=== PATIENT | male | born 1955 | race Two or more races ===

== ENCOUNTER 2024-04-10 09:59 | Outpatient (AMB) | payer MEDICARE, SELFPAY ==
[2024-04-10 10:15] VITALS: BP 136/78; PULSE 103; RESP 18; TEMP 36.2; O2SAT 98; BMI 24.7
--- NOTE | 2024-04-10 10:15 | PD.ORTHCLVIS ---
Vital signs 04/10/24 10:15 Height 1.78 m Height Method Stated Weight 78.528 kg Weight Measurement Method Standing Scale BMI 24.7 BP 136/78 H Blood Pressure Source Automatic Cuff Blood Pressure Location Right Upper Arm Position Sitting Respiration 18 Pulse 103 H Pulse Source Monitor Temp 97.1 F Temp Source Temporal Artery Scan Pulse Oximetry (%) 98 Oxygen Delivery Method Room Air Med/Allergies Allergies & Medications Allergies No Known Allergies Allergy (Unknown, Uncoded 04/10/24 10:16) Medication Reconciliation metoprolol succinate 100 mg tablet,extended release 24 hr ##90 11/17/16 [History Confirmed 04/10/24] tamsulosin 0.4 mg capsule 0.4 mg PO QDAY 10/22/17 [History Confirmed 04/10/24] finasteride 5 mg tablet 5 mg PO QDAY 05/20/18 [History Confirmed 04/10/24] metformin 1,000 mg tablet 1,000 mg PO BID 04/01/24 [History Confirmed 04/10/24] Subjective Visit Visit for: follow up visit, knee and x-rays Immunization / Flu Flu Vaccine in the Last 12 Months: No Flu Vaccine Exclusion Criteria: No Exclusion Criteria History of Present Illness Chief complaint: F/U XRAYS Date of injury / onset of symptoms: more than 5 years Bhavesh is a pleasant 68-year-old male with bilateral knee pain significant worse on the right. He had a left total knee replacement in 2008. He has tried injections, physical therapy, and anti-inflammatories. He reports that he is seeing his now because the pain is miserable and tolerable. He reports that is not right knee curves inward quite a bit. Personal History Occupation: retired Red flag PMH: none Pain Pain level (0-10): 9 Pain duration: ALL DAY Pain location: inside (medial), outside (lateral), anterior and posterior Pain quality: sharp, dull and aching Pain timing: increases with activity and stairs Ambulatory data Ambulatory device: none Treatments Number of previous injections: 1 Improvement with previous injections: No Improvement with PT: No Improvement with NSAIDS: n/a Review of Systems Review of Systems: All systems negative unless otherwise noted in HPI. Exam Exam Patient is in no acute distress and is cooperative with the examination today. Patient has a normal mood and affect. Breathing is nonlabored. In no respiratory distress. Bilateral extremities were evaluated and demonstrates sensation intact to light touch. Palpable pedal pulses are present. No significant edema is present. Left knee incision is clean dry intact. Range of motion is 0 to 110 degrees. Right knee is tender to palpation medially. There is significant varus deformity. Range of motion is 0 to 80 degrees X-rays demonstrate severe arthritis of the right knee. There is about a 15 to 20 degree deformity. There is varus deformity with complete obliteration of the medial joint space and osteophytes. There is quite significant tibial wear. Will need augments on backup Assessment and Plan Problem List (1) Arthritis of right knee: Status: Acute Plan: Patient is a pleasant 68-year-old male with severe right knee arthritis. We discussed nonoperative operative options. X-rays demonstrate significant arthritis of the right knee with very pronounced varus deformity. We discussed nonoperative and operative options. He tried anti-inflammatories, injections, and physical therapy. We thus consider total knee replacement a reasonable option. The nature and purpose of the total knee replacement, alternative method(s) of treatment, the material risks involved, and the possibility of complications were fully explained to the patient. The patient does NOT have any of the following contraindications to TKA: - Active infection of the knee joint, OR - Active systemic bacteremia, OR - Active skin infection or open wound at surgical site, OR - Neuropathic arthritis, OR - Severe, rapidly progressive neurological disease, OR - Severe medical condition that makes risks of surgery outweigh the potential benefit The patient was told the most common risks and complications associated with a total knee replacement include, but are not limited to: blood clots in the leg, fatal pulmonary embolism, dislocation of the prosthesis, intraoperative and postoperative fractures of the femur or tibia, infection, failure of the prosthesis or grafting materials, complications from anesthesia, reactions to blood transfusions, postoperative leg length inequality, instability of the knee replacement, nerve damage or injury, vascular injury, delayed wound healing, infection, other injury or even . In addition, there are risks associated with anesthesia given during this operation. Also, the patient was told that after undergoing a total knee replacement there may still be persistent pain or disability. The patient was informed that the success of this operation in part depends upon the mechanical devices which are going to be implanted and that these devices can fail or malfunction, and may need to be repaired or replaced and there are no guarantees as to the longevity of this device or its parts and that it or its parts could fail prematurely. The patient was also notified that during the course of surgery, there may be a need to use bone graft from donors, and that any bone graft used will be carefully screened for communicable diseases, including AIDS, hepatitis, Kenneth-Creutzfeldt, or other diseases, but despite the screening procedures, there is a small chance that they could contract one of these diseases. Finally, the patient was asked to follow completely and fully with all advice and recommended treatments, and that recovery and ultimate outcome are affected by their compliance with recommended treatment. We discussed the risks, benefits and treatment alternatives, and the patient is interested in proceeding with surgery. We will try to set this up as expeditiously as possible. Advanced Care Planning Discussion Advance care planning discussed with:: patient Office Procedures GNS Level of Care Nursing/Assessment Patient Status: Established Patient Nursing Assessment/Reassesment: Medication Reconciliation, Update PMH in EMR and Vital Signs Coordination of Care: Complex Care and Chronic Disease 1-5, Education Complex Pt/Fam, Consent,records obtained, informed consent, Results/Orders obtained and Staff clarify orders Special Needs: Language special needs Established Patient Charge Established Patient Point Assignment: 95 Established Patient Point Charge: EP Level 3 (80-115) Past Medical History Past Medical History Have you ever been diagnosed with any of the following: Cardiology Problems Congestive Heart Failure: No Hypertension: Yes Respiratory Problems Chronic Obstructive Pulmonary Disease (COPD): No Smoking: Yes Smoking Cessation Counseling: No Smoking Exposure: Yes Tobacco Use: Yes Genital/Urinary Problems Renal Disease: No Benign Prostatic Hyperplasia: Yes Endocrine Problems Diabetes Mellitus Type 1: No Diabetes Mellitus Type 2: Yes Other Problems Cancer: No Surgical History Total Knee Replacement: Yes
== END 2024-04-10 11:33 | disposition home or self-care (01) ==
LOC: HODSRG 09:59
PROVIDERS: PCP Family Medicine; Referring Provider Family Medicine; Supervising Provider Orthopaedic Surgery Adult Reconstructive Orthopaedic Surgery; Visit Provider Orthopaedic Surgery Adult Reconstructive Orthopaedic Surgery
DX: M17.11 Unilateral primary osteoarthritis, right knee (principal); M21.161 Varus deformity, not elsewhere classified, right knee; I10 Essential (primary) hypertension
CPT/HCPCS: 99213; G0463

== ENCOUNTER → 2024-04-30 | Outpatient (CLI) | payer MEDICARE, MEDICAID, SELFPAY ==
--- NOTE | 2024-04-30 13:30 | XR_ITS ---
Examination: CT right lower extremity, without contrast. 2-D sagittal reconstructions. 2-D coronal reconstructions. 3-D reconstructions. Date and time of exam:April 30, 2024 1328 hours INDICATIONS: Osteoarthritis right knee with pain 10 years CTDI: vol (mGy):9.32 DLP: (mGycm):790 Technique: Multiple 1.25 mm axial sections of the right lower extremity without intravenous contrast have been obtained. 2-D sagittal and coronal reconstructions have been obtained. 3-D reconstructions have been obtained. Low dose protocols were performed. One or more of the following dose reduction techniques were used; automated exposure control, adjustment of the mA and/or KV according to patient size, use of iterative reconstruction technique. Findings: Moderate osteopenia Mild to moderate narrowing right hip joint No hip fracture or hip dislocation No avascular necrosis Advanced right knee tricompartment osteoarthritis, old chip fractures off the depressed medial tibial plateau No acute fracture IMPRESSION: Advanced right knee tricompartment osteoarthritis
== END | disposition home or self-care (01) ==
PROVIDERS: PCP Family Medicine; Referring Provider Orthopaedic Surgery Adult Reconstructive Orthopaedic Surgery; Visit Provider Orthopaedic Surgery Adult Reconstructive Orthopaedic Surgery
DX: M17.11 Unilateral primary osteoarthritis, right knee (principal)
CPT/HCPCS: 73700

== ENCOUNTER 2024-05-13 10:14 | Outpatient (AMB) | payer MEDICARE, SELFPAY ==
--- NOTE | 2024-05-13 11:20 | PD.ORTHCLVIS ---
Med/Allergies Allergies & Medications Allergies No Known Allergies Allergy (Unknown, Uncoded 04/10/24 10:16) Subjective Visit Visit for: follow up visit, knee and x-rays Immunization / Flu Flu Vaccine in the Last 12 Months: No Flu Vaccine Exclusion Criteria: No Exclusion Criteria History of Present Illness Chief complaint: F/U XRAYS Date of injury / onset of symptoms: more than 5 years Bhavesh is a pleasant 68-year-old male with bilateral knee pain significant worse on the right. He had a left total knee replacement in 2008. He has tried injections, physical therapy, and anti-inflammatories. He reports that he is seeing his now because the pain is miserable and tolerable. He reports that is not right knee curves inward quite a bit. Personal History Occupation: retired Red flag PMH: none Pain Pain level (0-10): 9 Pain duration: ALL DAY Pain location: inside (medial), outside (lateral), anterior and posterior Pain quality: sharp, dull and aching Pain timing: increases with activity and stairs Ambulatory data Ambulatory device: none Treatments Number of previous injections: 1 Improvement with previous injections: No Improvement with PT: No Improvement with NSAIDS: n/a Review of Systems Review of Systems: All systems negative unless otherwise noted in HPI. Exam Exam Patient is in no acute distress and is cooperative with the examination today. Patient has a normal mood and affect. Breathing is nonlabored. In no respiratory distress. Bilateral extremities were evaluated and demonstrates sensation intact to light touch. Palpable pedal pulses are present. No significant edema is present. Left knee incision is clean dry intact. Range of motion is 0 to 110 degrees. Right knee is tender to palpation medially. There is significant varus deformity. Range of motion is 0 to 80 degrees X-rays demonstrate severe arthritis of the right knee. There is about a 15 to 20 degree deformity. There is varus deformity with complete obliteration of the medial joint space and osteophytes. There is quite significant tibial wear. Will need augments on backup Assessment and Plan Problem List (1) Arthritis of right knee: Status: Acute Plan: Patient is a pleasant 68-year-old male with severe right knee arthritis. We discussed nonoperative operative options. X-rays demonstrate significant arthritis of the right knee with very pronounced varus deformity. We discussed nonoperative and operative options. He tried anti-inflammatories, injections, and physical therapy. We thus consider total knee replacement a reasonable option. We answered all his questions today. The nature and purpose of the total knee replacement, alternative method(s) of treatment, the material risks involved, and the possibility of complications were fully explained to the patient. The patient does NOT have any of the following contraindications to TKA: - Active infection of the knee joint, OR - Active systemic bacteremia, OR - Active skin infection or open wound at surgical site, OR - Neuropathic arthritis, OR - Severe, rapidly progressive neurological disease, OR - Severe medical condition that makes risks of surgery outweigh the potential benefit The patient was told the most common risks and complications associated with a total knee replacement include, but are not limited to: blood clots in the leg, fatal pulmonary embolism, dislocation of the prosthesis, intraoperative and postoperative fractures of the femur or tibia, infection, failure of the prosthesis or grafting materials, complications from anesthesia, reactions to blood transfusions, postoperative leg length inequality, instability of the knee replacement, nerve damage or injury, vascular injury, delayed wound healing, infection, other injury or even . In addition, there are risks associated with anesthesia given during this operation. Also, the patient was told that after undergoing a total knee replacement there may still be persistent pain or disability. The patient was informed that the success of this operation in part depends upon the mechanical devices which are going to be implanted and that these devices can fail or malfunction, and may need to be repaired or replaced and there are no guarantees as to the longevity of this device or its parts and that it or its parts could fail prematurely. The patient was also notified that during the course of surgery, there may be a need to use bone graft from donors, and that any bone graft used will be carefully screened for communicable diseases, including AIDS, hepatitis, Kenneth-Creutzfeldt, or other diseases, but despite the screening procedures, there is a small chance that they could contract one of these diseases. Finally, the patient was asked to follow completely and fully with all advice and recommended treatments, and that recovery and ultimate outcome are affected by their compliance with recommended treatment. We discussed the risks, benefits and treatment alternatives, and the patient is interested in proceeding with surgery. We will try to set this up as expeditiously as possible. Advanced Care Planning Discussion Advance care planning discussed with:: patient Past Medical History Past Medical History Have you ever been diagnosed with any of the following: Cardiology Problems Congestive Heart Failure: No Hypertension: Yes Respiratory Problems Chronic Obstructive Pulmonary Disease (COPD): No Smoking: Yes Smoking Cessation Counseling: No Smoking Exposure: Yes Tobacco Use: Yes Genital/Urinary Problems Renal Disease: No Benign Prostatic Hyperplasia: Yes Endocrine Problems Diabetes Mellitus Type 1: No Diabetes Mellitus Type 2: Yes Other Problems Cancer: No Surgical History Total Knee Replacement: Yes
[2024-05-13 11:27] VITALS: BP 129/75; PULSE 71; RESP 18; TEMP 36.3
== END 2024-05-13 11:28 | disposition home or self-care (01) ==
LOC: HODSRG 10:14
PROVIDERS: PCP Family Medicine; Referring Provider Family Medicine; Supervising Provider Orthopaedic Surgery Adult Reconstructive Orthopaedic Surgery; Visit Provider Orthopaedic Surgery Adult Reconstructive Orthopaedic Surgery
DX: M17.11 Unilateral primary osteoarthritis, right knee (principal); M21.161 Varus deformity, not elsewhere classified, right knee; I10 Essential (primary) hypertension; E11.9 Type 2 diabetes mellitus without complications
CPT/HCPCS: 99214; G0463

== ENCOUNTER 2024-05-19 06:55 | Day surgery (SDC) | payer MEDICARE, SELFPAY ==
[2024-05-16 11:37] VITALS: BMI 25.9
[2024-05-16 12:16] LABS: Basophils % (Auto) 0 % (0-2.5); Eosinophils # (Auto) 0.3 Thou/mm3 (0.0-0.5); Eosinophils % (Auto) 5 % (0-10); Hematocrit 44.8 % (41.0-53.0); Hemoglobin 15.1 g/dL (13.5-16.0); Immature Granulocytes % (Auto) 0 % (0-0); Immature Granulocytes Auto 0.02 Thou/mm3 (0.00-0.00); Lymphocytes # (Auto) 2.4 Thou/mm3 (1.0-4.8); Lymphocytes % (Auto) 41 % (10-50); Mean Corpuscular HGB Conc 33.7 g/dl (31.0-37.0); Mean Corpuscular Hemoglobin 30.3 pg (25.0-35.0); Mean Corpuscular Volume 90 fL (80-100); Monocytes # (Auto) 0.5 Thou/mm3 (0.0-0.8); Monocytes % (Auto) 8 % (0-12); Neutrophils # (Auto) 2.7 Thou/mm3 (1.8-7.7); Neutrophils % (Auto) 46 % (37-80); Nucleated Red Blood Cell % 0 /100 WBC (0); Platelet Count 201 Thou/mm3 (140-440); RDW Standard Deviation 42.6 fL (35.1-43.9); Red Blood Count 4.98 Miln/mm3 (4.50-5.90); White Blood Count 5.8 Thou/mm3 (3.8-10.6)
[2024-05-16 12:22] LABS: Partial Thromboplastin Time 25.3 Seconds (22.0-36.0); Prothrombin Time 11.2 Seconds (9.0-12.2)
[2024-05-16 12:31] LABS: Alanine Aminotransferase 25 U/L (10-49); Albumin, Serum 4.6 gm/dL (3.4-4.8); Albumin/Globulin Ratio 1.8 (1.2-2.2); Alkaline Phosphatase 92 U/L (46-116); Anion Gap 7 (7-16); Aspartate Amino Transferase 17 U/L (0-34); BUN/Creatinine Ratio 15 Ratio (12-20); Bilirubin,Total 0.7 mg/dL (0.3-1.2); Blood Urea Nitrogen 12 mg/dL (9-23); Calcium 9.3 mg/dL (8.3-10.6); Calcium (Corrected) 9.3 mg/dL (8.5-10.1); Carbon Dioxide 28.1 mMol/L (20.0-31.0); Chloride 105 mMol/L (98-107); Creatinine (Component) 0.8 mg/dL (0.6-1.3); Globulin 2.5 gm/dL (2.3-3.5); Glucose 129 mg/dL (74-106); Osmolality,Calculated 281 (275-295); Potassium 3.6 mMol/L (3.4-5.1); Sodium 140 mMol/L (136-145); Total Protein 7.1 gm/dL (5.7-8.2); eGFR > 60 See Note
[2024-05-19] VITALS (16 sets, daily range): BP systolic 121–154; BP diastolic 54–86; PULSE 55–77; RESP 12–20; TEMP 36.3–36.9; O2SAT 97–100; BMI 24.8
[2024-05-19] MEDS: PREGABALIN 75 MG CAPSULE PO (07:36)
[2024-05-19] MEDS: MELOXICAM 7.5 MG TABLET PO (07:36)
[2024-05-19] MEDS: ACETAMINOPHEN 325 MG TABLET 650 MG PO (07:36)
[2024-05-19] MEDS: RINGERS LACTATED 1000 ML 1,000 ML 20 ML IV (07:38)
--- NOTE | 2024-05-19 10:05 | SUR.PREOP ---
Dr. Anguiano at bedside. States surgery is cancelled at this time. Aware to get dressed and go home, see primary care physician regarding A1C.
--- NOTE | 2024-05-19 13:17 | ESOP_ITS ---
Date of Procedure 05/19/24 Pre Op Diagnosis right knee osteoarthritis Post Op Diagnosis right knee osteoarthritis Procedure right knee arthroplasty sonya Findings full thickness cartilage loss and osteophytes Procedure Description Indication: The patient is a 68 year old who has a long history of right knee pain. X-rays show degenerative arthritis involving the knee. Over the past several years the patient has had increasing pain, progressive limitation in function. He has failed conservative measures including activity modification, physical therapy, injections, anti-inflammatories, and assistive devices. After a lengthy discussion of the risks and benefits, the patient presents now for total knee replacement. The nature and purpose of the total knee replacement, alternative method(s) of treatment, the material risks involved, and the possibility of complications were fully explained to the patient. The patient was told the most common risks and complications associated with a total knee replacement include, but are not limited to blood clots in the leg, fatal pulmonary embolism, dislocation of the prosthesis, intraoperative and postoperative fractures of the femur or tibia, infection, failure of the prosthesis or grafting materials, complications from anesthesia, reactions to blood transfusions, postoperative leg length inequality, instability of the knee replacement, nerve damage or injury, vascular injury, delayed wound healing, infections, other injury or even . In addition, there are risks associated with anesthesia given during this operation, temporary or permanent numbness on the skin lateral to the incision can be a complication unique to total knee surgery, and kneeling can be painful after knee replacement surgery. Also, the patient was told that after undergoing a total knee replacement there may still be pain or disability. We discussed with the patient that we will be using a robot-assisted technology. We discussed that there is a possibility of converting to manual instrumentation. The patient was informed that the success of this operation in part depends upon the mechanical devices which are going to be implanted and that these devices can fail or malfunction, and may need to be repaired or replaced and there are no guarantees as to the longevity of this device or its part and that it or its parts could fail prematurely. Finally, the patient was asked to follow completely and fully with all advice and recommended treatments, and that recovery and ultimate outcome are affected by their compliance with recommended treatment. Surgical technique: Patient was marked and consented in the pre-operative area. The patient was brought to the operating room and placed on the operating table in a supine position. Prior to positioning, a timeout procedure was performed between the surgeon, the anesthesiologist, and the nursing staff where the patient and the operative side were identified and confirmed. After adequate general anesthetic was obtained, the right lower extremity was prepped and draped in the usual sterile fashion. A weight based dose of Cefazolin were administered within 1 hour prior to incision. The robot was preregistered and calirated before the incision. The extremity was exsanguinated with an esmarch badge and tourniquet inflated to 250mmHg. A midline incision was made. A median parapatellar arthrotomy was made. The patella was subluxed laterally. A medial release was performed to expose the medial tibia. His femoral and tibial pins were placed through an intra incisional manner for both cases. Every effort was made to ensure that the distalmost aspect of the pin was hung in the second cortex. The arrays were then tightened several times to ensure that it was fixed for the remainder of the case. Both femoral and tibial checkpoints were then placed. We then went through the registration process of the bone. We then assessed the knee deformity and attempted to correct it. We also used the robot to aid in judging laxity in both extension and flexion. Final based on laxity and alignment we changed the preoperative assessment to obtain proper proper implant positioning and to correct deformity. Attention was then placed to the tibia. We made a tibial cut using the robot ensuring that both the MCL and the patella tendon were protected with retractors. We then went to the femur and made the posterior cut followed by the anterior cut and the anterior chamfer. The bone was then removed and we made a distal femur cut and a posterior chamfer cut. We verified all cuts. Significant posterior osteophytes were removed. A trial reduction was performed with a size 6 femoral component and a size 6 keeled tibial component. The patella was cut and sized to a 39. The patella tracked centrally, and no lateral retinacular release was necessary. The trial implants were removed. The arrays, pins, and checkpoints were all removed. We performed a verification that all pins were removed. The cut bone surfaces were lavaged. A size 6 right femoral component, a size 6 keeled tibial component, and a size 39 patella were impacted into position. The knee was felt to be well balanced in the sagittal and coronal plane. The final 6x11 mm cruciate-substituting articular insert was impacted into the tibial tray. The knee was brought out to full extension, flexed up to 120 degrees. It was stable to varus and valgus stress and appropriately balanced in flexion and extension. The wounds were copiously irrigated following deflation of tourniquet. The medial retinaculum was reapproximated with #1 vicryl and quill. The subcutaneous tissues were closed with 0 and 2-0 interrupted Vicryl. The skin was closed with 3-0 Monofilament V loc suture. A sterile dressing was applied. The patient was transferred to a bed and brought to recovery in stable condition. The patient tolerated the procedure well. There were no intraoperative complications. Sponge and needle counts were correct times 2. As the attending surgeon, I attest I was present and performed the entire operation. Grafts/Implants Size 6 CR Femur Size 6 Tibia 11mm poly CS 39mm patella Anesthesia spinal Implants kvng triathlon Pathology / specimen None Pathology comment: none Estimated Blood Loss 150 Surgeon Trey Anguiano MD Surgical Staff Operation Date: 05/19/24 09:45 Case Staff CHANNEL SALES MANAGER: Efrain Leahy RN First Assistant: Precious Rangel
--- NOTE | 2024-05-19 13:21 | XR_ITS ---
Examination: Right knee 2 views TECHNIQUE: AP lateral right knee 2 views Exam date and time: May 19, 2024 1409 hours INDICATIONS: Postop knee replacement today. FINDINGS: Moderate osteopenia Total right knee arthroplasty. Satisfactory alignment No fracture IMPRESSION: Total right knee arthroplasty with satisfactory alignment
--- NOTE | 2024-05-19 13:48 | SUR.PHASEI ---
pt received from OR in recovery bay 5. pt awake and alert, breathing unlabored on room air. v/s stable. pt dressing to right lower extremity cdi. report received from Efrain GONZALEZ and Ivy GIBBS.
--- NOTE | 2024-05-19 14:17 | SUR.PHASEI ---
pt able to tolerate oral fluids without difficulty swallowing or nausea/vomiting.
[2024-05-19] MEDS: TAMSULOSIN HCL 0.4 MG CAPSULE PO (16:29)
--- NOTE | 2024-05-19 19:00 | SUR.PHASEII ---
pt awake and alert, breathing unlabored on room air. v/s stable. pt dressing to right lower extremity cdi. pt cleared by physical therapist Darinel. pt able to ambulate to wheelchair with steady gait. pt unable to urinate, Dr. Anguiano ordered pt to go home with nascimento catheter and follow up with urologist to have it removed. d/c instructions given with daughter and in room, all questions answered. pt d/c via wheelchair with all belongings.
== END 2024-05-19 19:00 | disposition home or self-care (01) ==
LOC: S2EX 19:14
PROVIDERS: Anesthesiology; Family Provider Orthopaedic Surgery Adult Reconstructive Orthopaedic Surgery; Referring Provider Orthopaedic Surgery Adult Reconstructive Orthopaedic Surgery; Visit Provider Orthopaedic Surgery Adult Reconstructive Orthopaedic Surgery
PROC: (CPT 27447; principal; 2024-05-19 09:45)
DX: M17.11 Unilateral primary osteoarthritis, right knee (principal); M25.761 Osteophyte, right knee
CPT/HCPCS: 27447; 20985; 36415; 73560; 80053; 85025; 85610; 85730; 97162; A4217; C1713; C1776; J0131; J0171; J1100; J1885; J2405; J2704; J2795; J3010; J3490; J7030; J7120; A4648; A4649; A9270; J1596

== ENCOUNTER 2024-06-06 10:49 | Outpatient (AMB) | payer MEDICARE, SELFPAY ==
[2024-06-06 11:16] VITALS: BP 113/62; PULSE 67; RESP 18; TEMP 36.5; O2SAT 94; BMI 25.4
--- NOTE | 2024-06-06 11:16 | ORTHONT_ITS ---
Vital signs 06/06/24 11:16 Height 1.78 m Height Method Stated Weight 80.768 kg Weight Measurement Method Standing Scale BMI 25.4 BP 113/62 Blood Pressure Source Automatic Cuff Blood Pressure Location Left Upper Arm Position Sitting Respiration 18 Pulse 67 Pulse Source Monitor Temp 97.7 F Temp Source Temporal Artery Scan Pulse Oximetry (%) 94 L Oxygen Delivery Method Room Air Med/Allergies Allergies & Medications Allergies No Known Allergies Allergy (Verified 06/06/24 11:17) Medication Reconciliation metoprolol succinate 100 mg tablet,extended release 24 hr 100 mg PO DAILY ##90 11/17/16 [History Confirmed 06/06/24] finasteride 5 mg tablet 5 mg PO QDAY 05/20/18 [History Confirmed 06/06/24] metformin 1,000 mg tablet 1,000 mg PO HS 04/01/24 [History Confirmed 06/06/24] celecoxib 200 mg capsule 200 mg PO BID 05/16/24 [History Confirmed 06/06/24] tamsulosin 0.4 mg capsule (Flomax) 0.4 mg PO QDAY 05/16/24 [History Confirmed 06/06/24] acetaminophen 500 mg tablet (Acetaminophen Extra Strength) 1,000 mg (2 x 500 mg) PO Q6H PRN pain #90 tabs 05/19/24 [Rx Confirmed 06/06/24] aspirin 81 mg tablet,delayed release 81 mg PO BID #60 tabs 05/19/24 [Rx Confirmed 06/06/24] doxycycline hyclate 100 mg tablet 100 mg PO BID #14 tabs 05/19/24 [Rx Confirmed 06/06/24] gabapentin 300 mg capsule 300 mg PO .qhs #30 caps 05/19/24 [Rx Confirmed 06/06/24] sennosides 8.6 mg-docusate sodium 50 mg tablet (Senna-S) 1 tab-cap PO QDAY #30 tabs 05/19/24 [Rx Confirmed 06/06/24] oxycodone 5 mg tablet 5 mg PO Q6H PRN pain #28 tabs 05/29/24 [Rx Confirmed 06/06/24] Exam Exam Patient is in no acute distress and is cooperative with the examination today. Patient has a normal mood and affect. Breathing is nonlabored. In no respiratory distress. Bilateral extremities were evaluated and demonstrates sensation intact to light touch. Palpable pedal pulses are present. No significant edema is present. Left knee incision is clean dry intact. Range of motion is 0 to 110 degrees. Right knee Incision is clean dry and intact. Assessment and Plan Problem List (1) Arthritis of right knee: Status: Acute Plan: Patient is a pleasant 68-year-old male with severe right knee arthritis. Patient is doing well status post right total knee replacement. We will see the patient back in approximately 4 weeks with new x-rays. We Will set him up with outpatient therapy. Advanced Care Planning Discussion Advance care planning discussed with:: patient Office Procedures GNS Level of Care Nursing/Assessment Patient Status: Established Patient Nursing Assessment/Reassesment: Medication Reconciliation, Update PMH in EMR and Vital Signs Coordination of Care: Complex Care and Chronic Disease 1-5, Education Complex Pt/Fam, Consent,records obtained, informed consent, 1 Ins Authorization, Results/Orders obtained and Staff clarify orders Special Needs: Language special needs Established Patient Charge Established Patient Point Assignment: 110 Established Patient Point Charge: EP Level 3 (80-115) MA Intake Visit Data Collection New Patient or Established: Established Patient (seen at [facility] within 3 years) Reason for Visit:: 2 week f.u Seen by Clinical Staff ONLY (RN/MA): No Liquor Rectifier Required: No PCP or OBGYN visit in last 3 months: Yes Hx Now: No Do You Feel Safe at Home: Yes Authorities Contacted: N/A Questionairres Past Medical History Past Medical History Have you ever been diagnosed with any of the following: Neurological Problems Seizures: No Cardiology Problems Congestive Heart Failure: No Hypertension: Yes Respiratory Problems Chronic Obstructive Pulmonary Disease (COPD): No Smoking: Yes Smoking Cessation Counseling: No Smoking Exposure: Yes Tobacco Use: Yes Genital/Urinary Problems Renal Disease: No Benign Prostatic Hyperplasia: Yes Musculoskeletal Problems Arthritis: Yes Endocrine Problems Diabetes Mellitus Type 1: No Diabetes Mellitus Type 2: Yes Other Problems Hospitalization: No Shingles: No Blood Transfusions: Yes Blood Transfusion Reaction: No Anesthesia Reactions: No Cancer: No Surgical History Total Knee Replacement: Yes Subjective Visit Visit for: follow up visit Immunization / Flu Flu Vaccine in the Last 12 Months: No Flu Vaccine Exclusion Criteria: No Exclusion Criteria History of Present Illness Chief complaint: Status post Right total knee replacement Bhavesh is a pleasant 68-year-old male who is status post right total knee replacement. He is doing well. Minimal pain. He is using a walker and once he agreed with Pain Pain level (0-10): 2 Pain duration: constant Pain location: inside (medial) Pain quality: aching Pain timing: night Associated signs & symptoms: none Ambulatory data Ambulatory device: walker Treatments Improvement with previous injections: No Improvement with PT: No Improvement with NSAIDS: no Review of Systems Review of Systems: All systems negative unless otherwise noted in HPI.
== END 2024-06-06 11:35 | disposition home or self-care (01) ==
PROVIDERS: PCP Family Medicine; Referring Provider Family Medicine; Supervising Provider Orthopaedic Surgery Adult Reconstructive Orthopaedic Surgery; Visit Provider Orthopaedic Surgery Adult Reconstructive Orthopaedic Surgery
DX: M17.11 Unilateral primary osteoarthritis, right knee (principal); Z96.651 Presence of right artificial knee joint; I10 Essential (primary) hypertension; E11.9 Type 2 diabetes mellitus without complications
CPT/HCPCS: 99213; G0463

== ENCOUNTER → 2024-07-01 | Outpatient (CLI) | payer MEDICARE, MEDICAID, SELFPAY ==
--- NOTE | 2024-07-01 10:18 | XR_ITS ---
Examination: Right knee 4 views TECHNIQUE: AP oblique lateral axial right knee 4 views, standing Exam date and time: July 01, 2024 1122 hours INDICATIONS: Status post knee arthroplasty one month ago FINDINGS: Moderate osteopenia Total right knee arthroplasty. Satisfactory alignment. No fracture. No loosening of the prosthetic components No patellar dislocation IMPRESSION: Total right knee arthroplasty with satisfactory alignment
== END | disposition home or self-care (01) ==
PROVIDERS: PCP Family Medicine; Referring Provider Orthopaedic Surgery Adult Reconstructive Orthopaedic Surgery; Visit Provider Orthopaedic Surgery Adult Reconstructive Orthopaedic Surgery
DX: Z96.651 Presence of right artificial knee joint (principal)
CPT/HCPCS: 73564

== ENCOUNTER 2024-07-04 09:30 | Outpatient (AMB) | payer MEDICARE, SELFPAY ==
[2024-07-04 09:55] VITALS: BP 162/81; PULSE 63; RESP 18; TEMP 36.6; O2SAT 98; BMI 19.8
--- NOTE | 2024-07-04 09:55 | ORTHONT_ITS ---
Vital signs 07/04/24 09:55 Height 1.78 m Height Method Stated Weight 62.766 kg Weight Measurement Method Standing Scale BMI 19.8 BP 162/81 H Blood Pressure Source Automatic Cuff Blood Pressure Location Right Upper Arm Position Sitting Respiration 18 Pulse 63 Pulse Source Monitor Temp 97.8 F Temp Source Temporal Artery Scan Pulse Oximetry (%) 98 Oxygen Delivery Method Room Air Med/Allergies Allergies & Medications Allergies No Known Allergies Allergy (Verified 07/04/24 09:56) Medication Reconciliation metoprolol succinate 100 mg tablet,extended release 24 hr 100 mg PO DAILY ##90 11/17/16 [History Confirmed 07/04/24] finasteride 5 mg tablet 5 mg PO QDAY 05/20/18 [History Confirmed 07/04/24] metformin 1,000 mg tablet 1,000 mg PO HS 04/01/24 [History Confirmed 07/04/24] celecoxib 200 mg capsule 200 mg PO BID 05/16/24 [History Confirmed 07/04/24] tamsulosin 0.4 mg capsule (Flomax) 0.4 mg PO QDAY 05/16/24 [History Confirmed 07/04/24] acetaminophen 500 mg tablet (Acetaminophen Extra Strength) 1,000 mg (2 x 500 mg) PO Q6H PRN pain #90 tabs 05/19/24 [Rx Confirmed 07/04/24] aspirin 81 mg tablet,delayed release 81 mg PO BID #60 tabs 05/19/24 [Rx Confirmed 07/04/24] doxycycline hyclate 100 mg tablet 100 mg PO BID #14 tabs 05/19/24 [Rx Confirmed 07/04/24] gabapentin 300 mg capsule 300 mg PO .qhs #30 caps 05/19/24 [Rx Confirmed 07/04/24] sennosides 8.6 mg-docusate sodium 50 mg tablet (Senna-S) 1 tab-cap PO QDAY #30 tabs 05/19/24 [Rx Confirmed 07/04/24] oxycodone 5 mg tablet 5 mg PO Q6H PRN pain #28 tabs 05/29/24 [Rx Confirmed 07/04/24] gabapentin 300 mg capsule 300 mg PO .qhs #30 caps 06/16/24 [Rx Confirmed 07/04/24] oxycodone 5 mg tablet 5 mg PO Q6H PRN pain #28 tabs 06/16/24 [Rx Confirmed 07/04/24] Exam Exam Patient is in no acute distress and is cooperative with the examination today. Patient has a normal mood and affect. Breathing is nonlabored. In no respiratory distress. Bilateral extremities were evaluated and demonstrates sensation intact to light touch. Palpable pedal pulses are present. No significant edema is present. Left knee incision is clean dry intact. Range of motion is 0 to 110 degrees. Right knee Incision is clean dry and intact. Range of motion is 0 to 90 degrees Assessment and Plan Problem List (1) Arthritis of right knee: Status: Acute Plan: Patient is a pleasant 68-year-old male with severe right knee arthritis. His x- rays are good and should start outpatient therapy. He is very happy. Advanced Care Planning Discussion Advance care planning discussed with:: patient Office Procedures GNS Level of Care Nursing/Assessment Patient Status: Established Patient Nursing Assessment/Reassesment: Medication Reconciliation, Update PMH in EMR and Vital Signs Coordination of Care: Complex Care and Chronic Disease 1-5, Education Complex Pt/Fam, Consent,records obtained, informed consent, Results/Orders obtained and Staff clarify orders Special Needs: Language special needs Established Patient Charge Established Patient Point Assignment: 95 Established Patient Point Charge: EP Level 3 (80-115) MA Intake Visit Data Collection New Patient or Established: Established Patient (seen at [facility] within 3 years) Reason for Visit:: 6 WEEK POST OP R TKA Seen by Clinical Staff ONLY (RN/MA): No Verbal consent obtained for Telemed visit?: No Sensitized Paper Tester Required: Yes PCP or OBGYN visit in last 3 months: Yes Hx Now: No Do You Feel Safe at Home: Yes Authorities Contacted: N/A Questionairres Past Medical History Past Medical History Have you ever been diagnosed with any of the following: Neurological Problems Seizures: No Cardiology Problems Congestive Heart Failure: No Hypertension: Yes Respiratory Problems Chronic Obstructive Pulmonary Disease (COPD): No Smoking: Yes Smoking Cessation Counseling: No Smoking Exposure: Yes Tobacco Use: Yes Genital/Urinary Problems Renal Disease: No Benign Prostatic Hyperplasia: Yes Musculoskeletal Problems Arthritis: Yes Endocrine Problems Diabetes Mellitus Type 1: No Diabetes Mellitus Type 2: Yes Other Problems Hospitalization: No Shingles: No Blood Transfusions: Yes Blood Transfusion Reaction: No Anesthesia Reactions: No Cancer: No Surgical History Total Knee Replacement: Yes Subjective Visit Visit for: follow up visit and knee Immunization / Flu Flu Vaccine in the Last 12 Months: Yes Flu Vaccine Exclusion Criteria: Already Received History of Present Illness Chief complaint: F/U POST OP RT TKA Patient is 6 weeks postop status post right total knee replacement. He is doing well and has minimal pain Personal History Occupation: UNEMPLOYED Red flag PMH: none Pain Pain level (0-10): 2 Pain duration: COMES AND GOES Pain quality: dull and aching Ambulatory data Ambulatory device: none Treatments Improvement with previous injections: No Improvement with PT: No Improvement with NSAIDS: n/a Review of Systems Review of Systems: All systems negative unless otherwise noted in HPI.
== END 2024-07-04 10:18 | disposition home or self-care (01) ==
LOC: HODSRG 09:30
PROVIDERS: Supervising Provider Orthopaedic Surgery Adult Reconstructive Orthopaedic Surgery; Visit Provider Orthopaedic Surgery Adult Reconstructive Orthopaedic Surgery
DX: M17.11 Unilateral primary osteoarthritis, right knee (principal); Z96.651 Presence of right artificial knee joint; I10 Essential (primary) hypertension; E11.9 Type 2 diabetes mellitus without complications
CPT/HCPCS: 99213; G0463

== ENCOUNTER 2024-09-02 09:00 | Outpatient (AMB) | payer MEDICARE, MEDICAID, SELFPAY ==
--- NOTE | 2024-09-02 09:22 | PD.GSCLVISIT ---
Vital Signs - [facility] 09/02/24 09:23 Height 1.78 m Height Method Stated Weight 82.809 kg Weight Measurement Method Standing Scale BMI 26.1 BP 129/74 Blood Pressure Source Automatic Cuff Blood Pressure Location Right Upper Arm Position Sitting Respiration 18 Pulse 63 Pulse Source Monitor Temp 98.1 F Temp Source Temporal Artery Scan Pulse Oximetry (%) 97 Oxygen Delivery Method Room Air Med/Allergies Allergies & Medications Allergies No Known Allergies Allergy (Verified 09/02/24 09:24) Medication Reconciliation metoprolol succinate 100 mg tablet,extended release 24 hr 100 mg PO DAILY ##90 11/17/16 [History Confirmed 09/02/24] finasteride 5 mg tablet 5 mg PO QDAY 05/20/18 [History Confirmed 09/02/24] metformin 1,000 mg tablet 1,000 mg PO HS 04/01/24 [History Confirmed 09/02/24] celecoxib 200 mg capsule 200 mg PO BID 05/16/24 [History Confirmed 09/02/24] tamsulosin 0.4 mg capsule (Flomax) 0.4 mg PO QDAY 05/16/24 [History Confirmed 09/02/24] acetaminophen 500 mg tablet (Acetaminophen Extra Strength) 1,000 mg (2 x 500 mg) PO Q6H PRN pain #90 tabs 05/19/24 [Rx Confirmed 09/02/24] aspirin 81 mg tablet,delayed release 81 mg PO BID #60 tabs 05/19/24 [Rx Confirmed 09/02/24] doxycycline hyclate 100 mg tablet 100 mg PO BID #14 tabs 05/19/24 [Rx Confirmed 09/02/24] gabapentin 300 mg capsule 300 mg PO .qhs #30 caps 05/19/24 [Rx Confirmed 09/02/24] sennosides 8.6 mg-docusate sodium 50 mg tablet (Senna-S) 1 tab-cap PO QDAY #30 tabs 05/19/24 [Rx Confirmed 09/02/24] oxycodone 5 mg tablet 5 mg PO Q6H PRN pain #28 tabs 05/29/24 [Rx Confirmed 09/02/24] gabapentin 300 mg capsule 300 mg PO .qhs #30 caps 06/16/24 [Rx Confirmed 09/02/24] oxycodone 5 mg tablet 5 mg PO Q6H PRN pain #28 tabs 06/16/24 [Rx Confirmed 09/02/24] MA Intake Visit Data Collection New Patient or Established: Established Patient (seen at [facility] within 3 years) Seen by Clinical Staff ONLY (RN/MA): No Pain Present Currently: No Splitting Machine Feeder Required: Yes PCP or OBGYN visit in last 3 months: Yes Hx Now: No Do You Feel Safe at Home: Yes Authorities Contacted: N/A Smoking Status Smoking Status: Current some day smoker Cessation Counseling Provided: AMARA was advised that quitting smoking is the single most important factor to protect the health of themselves and their family. Discussed the benefits of quitting smoking with patient. Encouraged patient to quit smoking and provided Cessation assistance materials and resources. 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 Past Medical History Past Medical History NEUROLOGIC: Negative Neurological Disorders or Seizures CARDIAC: Positive Cardiac Disorders and Hypertension; Negative Congestive Heart Failure RESPIRATORY: Positive Smoking, Smoking Exposure and Tobacco Use; Negative Chronic Obstructive Pulmonary Disease (COPD) or Smoking Cessation Counseling GASTROINTESTINAL: Negative Gastrointestinal Disorders GENITOURINARY: Positive Genitourinary Disorders and Benign Prostatic Hyperplasia; Negative Renal Disease MUSCULOSKELETAL: Positive Arthritis ENDOCRINE: Positive Endocrine Disorders and Diabetes Mellitus Type 2; Negative Diabetes Mellitus Type 1 HEMATOLOGIC: Negative Blood Disorders OTHER HISTORY: Positive Blood Transfusions; Negative Hospitalization, Autoimmune Disease, Shingles, Blood Transfusion Reaction, Anesthesia Reactions or Cancer Family History FAMILY HISTORY: Positive Family Cardiac Disorders; Negative Family Psychiatric Problems, Family Respiratory Disorders, Family Gastrointestinal Problems, Family Cancer, Family Surgery or Family Anesthesia Reaction Social History SMOKING STATUS: Smoking status: Current some day smoker ALCOHOL: Alcohol Intake: Former HOUSING: Housing: House Office Procedures GNS Level of Care Nursing/Assessment Patient Status: Established Patient Nursing Assessment/Reassesment: Medication Reconciliation, Update PMH in EMR and Vital Signs Coordination of Care: Complex Care and Chronic Disease 1-5, Education Complex Pt/Fam, Consent,records obtained, informed consent, Results/Orders obtained and Staff clarify orders Established Patient Charge Established Patient Point Assignment: 95 Established Patient Point Charge: EP Level 3 (80-115) Patient Portal Questionaires Social History Living Situation History Housing: House Tobacco History Smoking Status: Current some day smoker Alcohol History Alcohol Intake: Former Domestic Abuse History Do You Feel Safe at Home: Yes Review of Systems Report any current symptoms Only answer those that you have currently: Past Medical History Past Medical History Have you ever been diagnosed with any of the following: Neurological Problems Seizures: No Cardiology Problems Congestive Heart Failure: No Hypertension: Yes Respiratory Problems Chronic Obstructive Pulmonary Disease (COPD): No Smoking: Yes Smoking Cessation Counseling: No Smoking Exposure: Yes Tobacco Use: Yes Genital/Urinary Problems Renal Disease: No Benign Prostatic Hyperplasia: Yes Musculoskeletal Problems Arthritis: Yes Endocrine Problems Diabetes Mellitus Type 1: No Diabetes Mellitus Type 2: Yes Other Problems Hospitalization: No Autoimmune Disease: No Shingles: No Blood Transfusions: Yes Blood Transfusion Reaction: No Anesthesia Reactions: No Cancer: No Surgical History Total Knee Replacement: Yes
[2024-09-02 09:23] VITALS: BP 129/74; PULSE 63; RESP 18; TEMP 36.7; O2SAT 97; BMI 26.1
--- NOTE | 2024-09-02 09:42 | PD.ORTHCLVIS ---
Vital signs 09/02/24 09:23 09/02/24 09:44 Height 1.78 m Height Method Stated Weight 82.809 kg Weight Measurement Method Standing Scale BMI 26.1 BP 129/74 129/74 Blood Pressure Source Automatic Cuff Blood Pressure Location Right Upper Arm Position Sitting Respiration 18 18 Pulse 63 63 Pulse Source Monitor Temp 98.1 F 98.1 F Temp Source Temporal Artery Scan Pulse Oximetry (%) 97 97 Oxygen Delivery Method Room Air Med/Allergies Allergies & Medications Allergies No Known Allergies Allergy (Verified 09/02/24 09:24) Medication Reconciliation metoprolol succinate 100 mg tablet,extended release 24 hr 100 mg PO DAILY ##90 11/17/16 [History Confirmed 09/02/24] finasteride 5 mg tablet 5 mg PO QDAY 05/20/18 [History Confirmed 09/02/24] metformin 1,000 mg tablet 1,000 mg PO HS 04/01/24 [History Confirmed 09/02/24] celecoxib 200 mg capsule 200 mg PO BID 05/16/24 [History Confirmed 09/02/24] tamsulosin 0.4 mg capsule (Flomax) 0.4 mg PO QDAY 05/16/24 [History Confirmed 09/02/24] acetaminophen 500 mg tablet (Acetaminophen Extra Strength) 1,000 mg (2 x 500 mg) PO Q6H PRN pain #90 tabs 05/19/24 [Rx Confirmed 09/02/24] aspirin 81 mg tablet,delayed release 81 mg PO BID #60 tabs 05/19/24 [Rx Confirmed 09/02/24] doxycycline hyclate 100 mg tablet 100 mg PO BID #14 tabs 05/19/24 [Rx Confirmed 09/02/24] gabapentin 300 mg capsule 300 mg PO .qhs #30 caps 05/19/24 [Rx Confirmed 09/02/24] sennosides 8.6 mg-docusate sodium 50 mg tablet (Senna-S) 1 tab-cap PO QDAY #30 tabs 05/19/24 [Rx Confirmed 09/02/24] oxycodone 5 mg tablet 5 mg PO Q6H PRN pain #28 tabs 05/29/24 [Rx Confirmed 09/02/24] gabapentin 300 mg capsule 300 mg PO .qhs #30 caps 06/16/24 [Rx Confirmed 09/02/24] oxycodone 5 mg tablet 5 mg PO Q6H PRN pain #28 tabs 06/16/24 [Rx Confirmed 09/02/24] Exam Exam Patient is in no acute distress and is cooperative with the examination today. Patient has a normal mood and affect. Breathing is nonlabored. In no respiratory distress. Bilateral extremities were evaluated and demonstrates sensation intact to light touch. Palpable pedal pulses are present. No significant edema is present. Left knee incision is clean dry intact. Range of motion is 0 to 110 degrees. Right knee Incision is clean dry and intact. Range of motion is 0 to 110 degrees Assessment and Plan Problem List (1) Arthritis of right knee: Status: Acute Plan: Patient is a pleasant 68-year-old male with severe right knee arthritis. His total knee replacement Looks great. We will see him in 6 weeks with new xrays Advanced Care Planning Discussion Advance care planning discussed with:: patient Office Procedures GNS Level of Care Nursing/Assessment Patient Status: Established Patient Nursing Assessment/Reassesment: Medication Reconciliation, Update PMH in EMR and Vital Signs Coordination of Care: Complex Care and Chronic Disease 1-5, Education Complex Pt/Fam, Consent,records obtained, informed consent, Results/Orders obtained and Staff clarify orders Special Needs: Language special needs Established Patient Charge Established Patient Point Assignment: 95 Established Patient Point Charge: EP Level 3 (80-115) MA Intake Visit Data Collection New Patient or Established: Established Patient (seen [facility]) Reason for Visit:: F.U TKA Seen by Clinical Staff ONLY (RN/MA): No Manager Business Continuity Required: Yes PCP or OBGYN visit in last 3 months: Yes Hx Now: No Do You Feel Safe at Home: Yes Authorities Contacted: N/A Questionairres Past Medical History Past Medical History Have you ever been diagnosed with any of the following: Neurological Problems Seizures: No Cardiology Problems Congestive Heart Failure: No Hypertension: Yes Respiratory Problems Chronic Obstructive Pulmonary Disease (COPD): No Smoking: Yes Smoking Cessation Counseling: No Smoking Exposure: Yes Tobacco Use: Yes Genital/Urinary Problems Renal Disease: No Benign Prostatic Hyperplasia: Yes Musculoskeletal Problems Arthritis: Yes Endocrine Problems Diabetes Mellitus Type 1: No Diabetes Mellitus Type 2: Yes Other Problems Hospitalization: No Shingles: No Blood Transfusions: Yes Blood Transfusion Reaction: No Anesthesia Reactions: No Cancer: No Surgical History Total Knee Replacement: Yes Subjective Visit Visit for: follow up visit Immunization / Flu Flu Vaccine in the Last 12 Months: Yes Flu Vaccine 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 He is doing well. He has minimal pain. Personal History Red flag PMH: smoker Pain Pain level (0-10): 0 Ambulatory data Ambulatory device: none Treatments Improvement with previous injections: No Improvement with PT: No Improvement with NSAIDS: n/a Review of Systems Review of Systems: All systems negative unless otherwise noted in HPI.
[2024-09-02 09:44] VITALS: BP 129/74; PULSE 63; RESP 18; TEMP 36.7; O2SAT 97
== END 2024-09-02 09:50 | disposition home or self-care (01) ==
LOC: HODSRG 09:00
PROVIDERS: PCP Family Medicine; Referring Provider Family Medicine; Supervising Provider Orthopaedic Surgery Adult Reconstructive Orthopaedic Surgery; Visit Provider Orthopaedic Surgery Adult Reconstructive Orthopaedic Surgery
DX: M17.11 Unilateral primary osteoarthritis, right knee (principal); Z96.651 Presence of right artificial knee joint; I10 Essential (primary) hypertension; E11.9 Type 2 diabetes mellitus without complications
CPT/HCPCS: 99213; G0463

== ENCOUNTER 2025-03-03 08:46 | Outpatient (AMB) | payer MEDICARE, MEDICAID, SELFPAY ==
--- NOTE | 2025-03-03 08:55 | ORTHONT_ITS ---
Vital signs 03/03/25 08:56 Height 1.78 m Height Method Stated Weight 77.706 kg Weight Measurement Method Standing Scale BMI 24.5 BP 110/62 Blood Pressure Source Automatic Cuff Blood Pressure Location Left Upper Arm Position Sitting Respiration 18 Pulse 63 Pulse Source Monitor Temp 97.6 F Temp Source Temporal Artery Scan Pulse Oximetry (%) 98 Oxygen Delivery Method Room Air Med/Allergies Allergies & Medications Allergies No Known Allergies Allergy (Verified 03/03/25 08:57) Medication Reconciliation metoprolol succinate 100 mg tablet,extended release 24 hr 100 mg PO DAILY ##90 11/17/16 [History Confirmed 03/03/25] finasteride 5 mg tablet 5 mg PO QDAY 05/20/18 [History Confirmed 03/03/25] metformin 1,000 mg tablet 1,000 mg PO HS 04/01/24 [History Confirmed 03/03/25] celecoxib 200 mg capsule 200 mg PO BID 05/16/24 [History Confirmed 03/03/25] gabapentin 300 mg capsule 300 mg PO .qhs #30 caps 06/16/24 [Rx Confirmed 03/03/25] Exam Exam Patient is in no acute distress and is cooperative with the examination today. Patient has a normal mood and affect. Breathing is nonlabored. In no respiratory distress. Bilateral extremities were evaluated and demonstrates sensation intact to light touch. Palpable pedal pulses are present. No significant edema is present. Left knee incision is clean dry intact. Range of motion is 0 to 110 degrees. Right knee Incision is clean dry and intact. Range of motion is 0 to 110 degrees Assessment and Plan Problem List (1) Arthritis of right knee: Status: Acute Plan: Patient is a pleasant 68-year-old male with severe right knee arthritis. His total knee replacement Looks great. We will see him in approximately 6 months and we will order new x-rays for the next visit Advanced Care Planning Discussion Advance care planning discussed with:: patient Office Procedures GNS Level of Care Nursing/Assessment Patient Status: Established Patient Nursing Assessment/Reassesment: Medication Reconciliation, Update PMH in EMR and Vital Signs Coordination of Care: Complex Care and Chronic Disease 1-5, Education Complex Pt/Fam, Consent,records obtained, informed consent, Results/Orders obtained and Staff clarify orders Special Needs: Language special needs Established Patient Charge Established Patient Point Assignment: 95 Established Patient Point Charge: EP Level 3 (80-115) MA Intake Visit Data Collection New Patient or Established: Established Patient (seen at [facility] within 3 years) Reason for Visit:: FOLLOW UP TKA Seen by Clinical Staff ONLY (RN/MA): No 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 PCP or OBGYN visit in last 3 months: Yes Hx Now: No Do You Feel Safe at Home: Yes Authorities Contacted: N/A Questionairres Past Medical History Past Medical History Have you ever been diagnosed with any of the following: Neurological Problems Seizures: No Cardiology Problems Congestive Heart Failure: No Hypertension: Yes Respiratory Problems Chronic Obstructive Pulmonary Disease (COPD): No Smoking: Yes Smoking Cessation Counseling: No Smoking Exposure: Yes Tobacco Use: Yes Genital/Urinary Problems Renal Disease: No Benign Prostatic Hyperplasia: Yes Musculoskeletal Problems Arthritis: Yes Endocrine Problems Diabetes Mellitus Type 1: No Diabetes Mellitus Type 2: Yes Other Problems Hospitalization: No Shingles: No Blood Transfusions: Yes Blood Transfusion Reaction: No Anesthesia Reactions: No Cancer: No Surgical History Total Knee Replacement: Yes Subjective Visit Visit for: follow up visit Immunization / Flu Flu Vaccine in the Last 12 Months: Yes Flu Vaccine 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 He is doing well. He has minimal pain. Personal History Red flag PMH: smoker Pain Pain level (0-10): 0 Ambulatory data Ambulatory device: none Treatments Improvement with previous injections: No Improvement with PT: No Improvement with NSAIDS: n/a Review of Systems Review of Systems: All systems negative unless otherwise noted in HPI.
[2025-03-03 08:56] VITALS: BP 110/62; PULSE 63; RESP 18; TEMP 36.4; O2SAT 98; BMI 24.5
--- NOTE | 2025-03-03 09:29 | XR_ITS ---
Examination: Bilateral AP knees single view Right knee PA lateral axial 3 views TECHNIQUE: Bilateral AP knees standing single view Right knee PA standing tunnel, standing lateral, axial right knee 3 views total 4 views Date and time: March 03, 2025, 1010 hours INDICATIONS: Post right knee surgery May 2024 FINDINGS: Moderate osteopenia Bilateral total knee arthroplasties with satisfactory alignment No loosening of the prosthetic components No right patellar dislocation IMPRESSION: Bilateral total knee arthroplasties with satisfactory alignment
== END 2025-03-03 09:35 | disposition home or self-care (01) ==
PROVIDERS: PCP Family Medicine; Referring Provider Family Medicine; Supervising Provider Orthopaedic Surgery Adult Reconstructive Orthopaedic Surgery; Visit Provider Orthopaedic Surgery Adult Reconstructive Orthopaedic Surgery
DX: M17.11 Unilateral primary osteoarthritis, right knee (principal); Z96.651 Presence of right artificial knee joint; I10 Essential (primary) hypertension; E11.9 Type 2 diabetes mellitus without complications
CPT/HCPCS: 73564; 99213; G0463